=== PATIENT | male | born 1945 | race Caucasian/White ===

== ENCOUNTER 2021-02-23 11:42 | Inpatient (IN) | payer MEDICARE, SELFPAY ==
[2021-02-23 17:57] VITALS: BMI 24.5
[2021-02-25 16:55] VITALS: BP 136/67; TEMP 97.9
== END 2021-02-25 18:07 | disposition home or self-care (01) | DRG 923 ==
LOC: ERS 11:42 → 2SW 15:21 → OBSVTOIN 02-24 17:26
PROVIDERS: ADMIT Internal Medicine; ATTEND Internal Medicine
PROC: B24BZZ4 Ultrasonography of Heart with Aorta, Transesophageal (ICD-10-PCS; principal; 2021-02-25)
DX: T67.5XXA Heat exhaustion, unspecified, initial encounter (principal); I50.22 Chronic systolic (congestive) heart failure; I25.3 Aneurysm of heart; E87.2 Acidosis; I13.0 Hypertensive heart and chronic kidney disease with heart failure and stage 1 through stage 4 chronic kidney disease, or unspecified chronic kidney disease; Z20.822 Contact with and (suspected) exposure to COVID-19; I95.9 Hypotension, unspecified; R94.31 Abnormal electrocardiogram [ECG] [EKG]; E86.0 Dehydration; E53.8 Deficiency of other specified B group vitamins; N18.2 Chronic kidney disease, stage 2 (mild); D53.9 Nutritional anemia, unspecified; K21.9 Gastro-esophageal reflux disease without esophagitis; F41.9 Anxiety disorder, unspecified; H54.40 Blindness, one eye, unspecified eye; F32.9 Major depressive disorder, single episode, unspecified; I08.1 Rheumatic disorders of both mitral and tricuspid valves; R00.1 Bradycardia, unspecified; Z86.711 Personal history of pulmonary embolism; I25.2 Old myocardial infarction; Z79.899 Other long term (current) drug therapy; Z79.82 Long term (current) use of aspirin; Z90.49 Acquired absence of other specified parts of digestive tract; Z87.891 Personal history of nicotine dependence; Z82.49 Family history of ischemic heart disease and other diseases of the circulatory system; Z80.9 Family history of malignant neoplasm, unspecified
CPT/HCPCS: 0439T; 36415; 36416; 70450; 71275; 78452; 80048; 80053; 80061; 81003; 82550; 82607; 82746; 83036; 83605; 83735; 83880; 84484; 85025; 85379; 87040; 87086; 93005; 93017; 93306; 93312; 96365; 96372; 96375; 97139; A9500; G0378; J0153; J0692; J1650; J2250; J2704; J3420; J3475; Q0162; Q9967; U0003; U0005

== ENCOUNTER 2021-07-22 14:24 | Inpatient (IN) | payer MEDICARE ==
[2021-07-22 15:13] LABS: #Eosinphils 0.1 thou/uL (0.0-0.7); #Lymphocytes 2.5 thou/uL (1.20-3.40); #Monocytes 0.5 thou/uL (0.11-0.59); #Neutrophils 4.1 thou/uL (1.40-6.50); %Basophils 0.4 % (0.0-1.0); %Eosinophils 1.3 % (0.0-10.0); %Lymphocytes 34.3 % (21.0-51.0); %Monocytes 7.1 % (0.0-10.0); %Neutrophils 56.9 % (42.0-75.0); Hemoglobin 14.5 g/dL (14.0-18.0); Mean Corpuscular HGB CONC 34.9 g/dL (32.0-36.0); Mean Corpuscular Hemoglobin 32.6 pg (27.0-31.0); Mean Corpuscular Volume 93.4 fL (78.0-98.0); Mean Platelet Volume 7.1 fL (7.4-10.4); Platelet Count 159 thou/uL (130-400); RBC Distribution Width 12.8 % (11.5-14.5); Red Blood Cell (RBC) Count 4.44 mill/uL (4.70-6.10); White Blood Cell (WBC) Count 7.2 thou/uL (4.8-10.8)
[2021-07-22 15:37] LABS: ALT (SGPT) 11 U/L (8-55); AST (SGOT) 13 U/L (5-34); Alkaline Phosphatase 59 U/L (40-110); Anion Gap 13 mmol/L (10-20); BUN (Urea Nitrogen) 17 mg/dL (8.4-25.7); Calc. Creatinine Clearance 0 mL/min (70-130); Calcium 9.7 mg/dL (7.8-10.44); Carbon Dioxide 21 mmol/L (23-31); Chloride 108 mmol/L (98-107); Glucose 98 mg/dL (83-110); Potassium 4.4 mmol/L (3.5-5.1); Sodium 138 mmol/L (136-145)
[2021-07-22 19:08] LABS: Troponin I 0.019 ng/mL (< 0.028)
[2021-07-22] MEDS ORDERED: Ondansetron ODT 4 MG TAB PO PRN (19:11)
[2021-07-22] MEDS ORDERED: Ondansetron PF 4 MG/2 ML Vial IVP PRN (19:17)
[2021-07-22] MEDS ORDERED: Acetaminophen 325 MG TAB PO PRN (19:18)
[2021-07-22] MEDS ORDERED: FLU VACC QS2021-22(65YR UP)/PF 240 MCG/0.7 ML SYRINGE IM ONE (19:45)
[2021-07-22] MEDS ORDERED: Sodium Chloride 0.9% 1,000 ML IV SCH (21:45)
[2021-07-22 22:17] LABS: Troponin I 0.018 ng/mL (< 0.028)
[2021-07-23 00:43] LABS: SARS-CoV-2 PCR by NAA Not Detected (NotDetected)
[2021-07-23 05:49] LABS: ALT (SGPT) 9 U/L (8-55); AST (SGOT) 12 U/L (5-34); Albumin 3.6 g/dL (3.4-4.8); Alkaline Phosphatase 53 U/L (40-110); Anion Gap 12 mmol/L (10-20); BUN (Urea Nitrogen) 15 mg/dL (8.4-25.7); Calc. Creatinine Clearance 74 mL/min (70-130); Calcium 8.7 mg/dL (7.8-10.44); Carbon Dioxide 19 mmol/L (23-31); Chloride 110 mmol/L (98-107); Globulin 3.3 g/dL (2.4-3.5); Glucose 96 mg/dL (83-110); Potassium 3.9 mmol/L (3.5-5.1); Protein, Total 6.9 g/dL (5.8-8.1); Sodium 137 mmol/L (136-145); Troponin I 0.037 ng/mL (< 0.028)
[2021-07-23 05:56] LABS: Band 1 % (5-11); Eosinophils 5 % (0-10); Hemoglobin 13.1 g/dL (14.0-18.0); Lymphocytes 34 % (21-51); MDiff Complete? YES; Mean Corpuscular HGB CONC 34.2 g/dL (32.0-36.0); Mean Corpuscular Hemoglobin 32.1 pg (27.0-31.0); Mean Corpuscular Volume 93.9 fL (78.0-98.0); Monocytes 8 % (0-10); Neutrophil 50 % (42-75); Platelet Count 142 thou/uL (130-400); Platelet Morphology Comment Appears Adequate; RBC Distribution Width 12.7 % (11.5-14.5); RBC Morphology Normal; Red Blood Cell (RBC) Count 4.07 mill/uL (4.70-6.10); White Blood Cell (WBC) Count 4.6 thou/uL (4.8-10.8)
[2021-07-23] MEDS: Famotidine 20 MG TAB PO SCH ×2 (08:45→20:27)
[2021-07-23] MEDS: Sodium Bicarbonate Tab 325 MG TAB PO SCH ×2 (08:46→20:27)
[2021-07-23] MEDS ORDERED: Enoxaparin Sodium 30 MG/0.3 ML SYRINGE SC SCH (09:00)
[2021-07-23] MEDS: Acetylcysteine 20% 200 MG/ML 30 ML VIAL PO SCH ×2 (11:15→20:27)
[2021-07-23] MEDS ORDERED: Aspirin 81 mg Enteric Coated Tablet PO SCH (12:30)
[2021-07-23] MEDS ORDERED: Sodium Chloride 0.9% 1,000 ML IV SCH (12:45)
[2021-07-23] MEDS ORDERED: Nitroglycerin 0.4 MG TAB (25 Tab Bottle) SL PRN (12:58)
[2021-07-23] MEDS: Carvedilol 3.125 MG TAB PO SCH (17:44)
[2021-07-23] MEDS ORDERED: Communication Order-Pharmacy FS SCH (18:00)
[2021-07-23] MEDS: Sodium Chloride 0.9% 1,000 ML IV SCH (20:03)
[2021-07-24] MEDS: Sodium Chloride 0.9% 1,000 ML IV SCH (05:23)
[2021-07-24 05:48] LABS: #Eosinphils 0.2 thou/uL (0.0-0.7); #Lymphocytes 1.9 thou/uL (1.20-3.40); #Monocytes 0.4 thou/uL (0.11-0.59); #Neutrophils 2.1 thou/uL (1.40-6.50); %Basophils 0.7 % (0.0-1.0); %Eosinophils 3.9 % (0.0-10.0); %Lymphocytes 41.4 % (21.0-51.0); %Monocytes 9.1 % (0.0-10.0); %Neutrophils 44.9 % (42.0-75.0); Hemoglobin 13.1 g/dL (14.0-18.0); Mean Corpuscular HGB CONC 35.2 g/dL (32.0-36.0); Mean Corpuscular Hemoglobin 33.1 pg (27.0-31.0); Mean Corpuscular Volume 93.9 fL (78.0-98.0); Mean Platelet Volume 7.1 fL (7.4-10.4); Platelet Count 131 thou/uL (130-400); RBC Distribution Width 12.7 % (11.5-14.5); Red Blood Cell (RBC) Count 3.95 mill/uL (4.70-6.10); White Blood Cell (WBC) Count 4.6 thou/uL (4.8-10.8)
[2021-07-24] MEDS: Acetylcysteine 20% 200 MG/ML 30 ML VIAL PO SCH ×2 (05:48→20:23)
[2021-07-24] MEDS: Carvedilol 3.125 MG TAB PO SCH ×2 (05:48→16:15)
[2021-07-24] MEDS: Aspirin 81 mg Enteric Coated Tablet PO SCH (05:48)
[2021-07-24] MEDS: Sodium Bicarbonate Tab 325 MG TAB PO SCH ×2 (05:48→20:23)
[2021-07-24] MEDS: Famotidine 20 MG TAB PO SCH ×2 (05:48→20:23)
[2021-07-24 06:08] LABS: Anion Gap 11 mmol/L (10-20); BUN (Urea Nitrogen) 14 mg/dL (8.4-25.7); Calc. Creatinine Clearance 80 mL/min (70-130); Calcium 8.5 mg/dL (7.8-10.44); Carbon Dioxide 19 mmol/L (23-31); Chloride 112 mmol/L (98-107); Glucose 106 mg/dL (83-110); Potassium 3.9 mmol/L (3.5-5.1); Sodium 138 mmol/L (136-145)
[2021-07-24 07:41] LABS: Hemoglobin A1c 5.8 % (4.0-6.0)
[2021-07-24] MEDS ORDERED: Aspirin 325 mg Enteric Coated Tablet PO SCH (09:00)
[2021-07-24] MEDS ORDERED: Heparin 10,000 UNITS/ 10 ML VIAL ONE (10:26)
[2021-07-24] MEDS ORDERED: Verapamil 5 MG/2 ML VIAL ONE (10:26)
[2021-07-24] MEDS ORDERED: Nitroglycerin 100MG/250ML BOT 0 ML ONE (10:27)
[2021-07-24] MEDS ORDERED: Lidocaine 1% (PF) 30 ML VIAL ONE (10:27)
[2021-07-24] MEDS ORDERED: Iopamidol 370 76% 100 ML VIAL ONE (10:52)
[2021-07-24] MEDS ORDERED: Midazolam HCl 2 mg/2 ml Vial ONE (11:12)
[2021-07-24] MEDS ORDERED: Fentanyl 100 MCG/2 ML VIAL ONE (11:13)
[2021-07-24] MEDS ORDERED: Acetaminophen/Codeine 30-300mg Tablet PO PRN ×2 (13:12)
[2021-07-24] MEDS ORDERED: Sodium Chloride 0.9% 200 ML IV PRN (13:12)
[2021-07-24] MEDS ORDERED: Nitroglycerin 0.4 MG TAB (25 Tab Bottle) SL PRN (13:12)
[2021-07-24] MEDS ORDERED: Sodium Chloride 0.9% 1,000 ML IV SCH (13:15)
[2021-07-24] MEDS: Lisinopril 5 MG TAB PO SCH (20:24)
[2021-07-24] MEDS: Atorvastatin Calcium 20 MG TAB PO SCH (20:24)
[2021-07-25] MEDS: Carvedilol 3.125 MG TAB PO SCH ×2 (08:26→17:35)
[2021-07-25] MEDS: Aspirin 81 mg Enteric Coated Tablet PO SCH (08:26)
[2021-07-25] MEDS: Lisinopril 5 MG TAB PO SCH ×2 (08:27→20:20)
[2021-07-25] MEDS: Sodium Bicarbonate Tab 325 MG TAB PO SCH ×2 (08:27→20:20)
[2021-07-25] MEDS: Famotidine 20 MG TAB PO SCH (08:27)
[2021-07-25 09:00] LABS: Albumin 3.5 g/dL (3.4-4.8); Anion Gap 12 mmol/L (10-20); BUN (Urea Nitrogen) 12 mg/dL (8.4-25.7); BUN/Creatinine Ratio 11.65; Calc. Creatinine Clearance 78 mL/min (70-130); Calcium 8.9 mg/dL (7.8-10.44); Carbon Dioxide 22 mmol/L (23-31); Chloride 109 mmol/L (98-107); Glucose 114 mg/dL (83-110); Phosphorus 2.7 mg/dL (2.3-4.7); Potassium 3.9 mmol/L (3.5-5.1); Sodium 139 mmol/L (136-145)
[2021-07-25] MEDS: Atorvastatin Calcium 20 MG TAB PO SCH (20:20)
[2021-07-25] MEDS: Cyanocobalamin (Vitamin B-12) 1,000 MCG TAB PO SCH (20:20)
[2021-07-25] MEDS: Folic Acid 1 MG TAB PO SCH (20:20)
[2021-07-26 06:00] LABS: Albumin 3.4 g/dL (3.4-4.8); Anion Gap 11 mmol/L (10-20); BUN (Urea Nitrogen) 16 mg/dL (8.4-25.7); BUN/Creatinine Ratio 13.33; Calc. Creatinine Clearance 67 mL/min (70-130); Carbon Dioxide 23 mmol/L (23-31); Chloride 110 mmol/L (98-107); Glucose 121 mg/dL (83-110); Phosphorus 2.9 mg/dL (2.3-4.7); Sodium 140 mmol/L (136-145)
[2021-07-26] MEDS: Sodium Bicarbonate Tab 325 MG TAB PO SCH ×2 (08:39→21:08)
[2021-07-26] MEDS: Aspirin 81 mg Enteric Coated Tablet PO SCH (08:39)
[2021-07-26] MEDS: Lisinopril 5 MG TAB PO SCH ×2 (08:39→21:08)
[2021-07-26] MEDS: Carvedilol 3.125 MG TAB PO SCH ×2 (08:39→16:39)
[2021-07-26] MEDS ORDERED: Acetaminophen 325 MG TAB PO PRN (12:32)
[2021-07-26] MEDS: Folic Acid 1 MG TAB PO SCH (21:08)
[2021-07-26] MEDS: Cyanocobalamin (Vitamin B-12) 1,000 MCG TAB PO SCH (21:08)
[2021-07-26] MEDS: Atorvastatin Calcium 20 MG TAB PO SCH (21:08)
[2021-07-27] MEDS: Sodium Bicarbonate Tab 325 MG TAB PO SCH ×2 (08:22→21:07)
[2021-07-27] MEDS: Aspirin 81 mg Enteric Coated Tablet PO SCH (08:22)
[2021-07-27] MEDS: Lisinopril 5 MG TAB PO SCH ×2 (08:22→21:07)
[2021-07-27] MEDS: Carvedilol 3.125 MG TAB PO SCH ×2 (08:22→17:18)
[2021-07-27 14:49] LABS: Anion Gap 11 mmol/L (10-20); BUN (Urea Nitrogen) 12 mg/dL (8.4-25.7); Calc. Creatinine Clearance 79 mL/min (70-130); Calcium 8.6 mg/dL (7.8-10.44); Carbon Dioxide 23 mmol/L (23-31); Chloride 107 mmol/L (98-107); Glucose 127 mg/dL (83-110); Potassium 3.8 mmol/L (3.5-5.1); Sodium 137 mmol/L (136-145)
[2021-07-27] MEDS: Folic Acid 1 MG TAB PO SCH (21:07)
[2021-07-27] MEDS: Cyanocobalamin (Vitamin B-12) 1,000 MCG TAB PO SCH (21:07)
[2021-07-27] MEDS: Atorvastatin Calcium 20 MG TAB PO SCH (21:07)
[2021-07-28] MEDS ORDERED: Communication Order-Pharmacy FS SCH (00:01)
[2021-07-28] MEDS ORDERED: CEFAZOLIN 2 GM in Premix Bag 1 BAG IVPB SCH (02:30)
[2021-07-28] MEDS: Lisinopril 5 MG TAB PO SCH (05:46)
[2021-07-28] MEDS ORDERED: ceFAZolin 2 GM/DEX 5% 100 ML BAG ONE (05:47)
[2021-07-28] MEDS ORDERED: Albumin 5% 500 ML ONE (06:21)
[2021-07-28] MEDS ORDERED: Fentanyl 250 MCG/5 ML VIAL ONE (06:50)
[2021-07-28] MEDS ORDERED: Midazolam HCl 5 mg/5 ml Vial ONE (06:50)
[2021-07-28] MEDS ORDERED: Dexmedetomidine 200 MCG/2 ML VIAL ONE (06:50)
[2021-07-28] MEDS ORDERED: Heparin 10,000 UNITS/1 ML VIAL 30,000 UNITS in Sodium Chloride 0.9% 1,000 ML FS SCH (07:00)
[2021-07-28] MEDS ORDERED: Sodium Chloride 0.9% 60 ML ONE (07:02)
[2021-07-28] MEDS ORDERED: Milrinone 10 MG/10 ML VIAL ONE (07:34)
[2021-07-28] MEDS ORDERED: Vecuronium 10 MG VIAL ONE (07:46)
[2021-07-28] MEDS ORDERED: Ondansetron PF 4 MG/2 ML Vial ONE (07:46)
[2021-07-28] MEDS ORDERED: Heparin 30,000 units/30 ml VIAL ONE (07:46)
[2021-07-28] MEDS ORDERED: Potassium Chloride 60 MEQ/30 ML VIAL ONE (07:46)
[2021-07-28] MEDS ORDERED: Aminocaproic Acid 5 GM/20 ML VIAL ONE (07:46)
[2021-07-28] MEDS ORDERED: Nitroglycerin 50 MG/250 ML BOT ONE (07:46)
[2021-07-28] MEDS ORDERED: Thrombin 5000 UNITS/5 ML VIAL ONE (07:46)
[2021-07-28] MEDS ORDERED: Papaverine 60 MG/2 ML VIAL ONE (07:46)
[2021-07-28] MEDS ORDERED: Cardioplegic Soln 1,000 ML BAG ONE (07:46)
[2021-07-28] MEDS ORDERED: Calcium Chloride 1 GM/10 ML Abboject SYRINGE ONE (07:46)
[2021-07-28] MEDS ORDERED: Sodium Bicarb 50 MEQ/50 ML Abboject 8.4% SYRINGE ONE (07:46)
[2021-07-28] MEDS ORDERED: Glycopyrrolate 0.2 MG/ML 5 ML SYRINGE ONE (07:46)
[2021-07-28] MEDS ORDERED: Protamine Sulfate 250 MG/25 ML VIAL ONE (07:46)
[2021-07-28] MEDS ORDERED: Heparin 5,000 UNITS/ML VIAL ONE (07:46)
[2021-07-28] MEDS ORDERED: Lidocaine 2% PF 100 mg/5 ml Syringe ONE (07:46)
[2021-07-28] MEDS ORDERED: PROPOFOL 200 MG/20 ML VIAL ONE (07:46)
[2021-07-28] MEDS ORDERED: Magnesium Sulfate 1 GM/2 ML VIAL ONE (07:46)
[2021-07-28] MEDS ORDERED: Dexamethasone 20 MG/5 ML VIAL ONE (07:46)
[2021-07-28] MEDS ORDERED: Lidocaine 1% PF 5 ML VIAL ONE (07:46)
[2021-07-28] MEDS ORDERED: Insulin Regular 300 UNITS/3 ML VIAL ONE (08:21)
[2021-07-28] MEDS ORDERED: Mag-Al 1200 mg/1200 mg/30 ML UDCUP PO PRN (11:10)
[2021-07-28] MEDS ORDERED: Fentanyl 100 MCG/2 ML VIAL SLOW IVP PRN ×2 (11:10)
[2021-07-28] MEDS ORDERED: Hetastarch 6% 500 ML 500 ML IVPB PRN (11:10)
[2021-07-28] MEDS ORDERED: Guaifenesin DM 100-10/5 ML UDCUP PO PRN (11:10)
[2021-07-28] MEDS ORDERED: Post-Op Insulin Drip Protocol IVPB ONE (11:10)
[2021-07-28] MEDS ORDERED: Potassium Chloride 20 MEQ/100 ML PREMIX BAG IVPB PRN (11:10)
[2021-07-28] MEDS ORDERED: Bisacodyl 10 MG SUPP PR PRN (11:10)
[2021-07-28] MEDS ORDERED: Acetaminophen 325 MG TAB PO PRN (11:10)
[2021-07-28] MEDS ORDERED: Bisacodyl 5 MG TAB PO PRN (11:10)
[2021-07-28] MEDS ORDERED: Norepinephrine 8 MG/0.9% NS 250 ML IVPB PRN (11:10)
[2021-07-28] MEDS ORDERED: niCARdipine 25 MG in Sodium Chloride 0.9% 250 ML 250 ML IVPB PRN (11:10)
[2021-07-28] MEDS ORDERED: Morphine 2 MG/ML VIAL SLOW IVP PRN (11:10)
[2021-07-28] MEDS ORDERED: Nitroglycerin 50 MG/250 ML BOT 250 ML IVPB PRN (11:10)
[2021-07-28] MEDS ORDERED: DOPamine 400 MG/D5W 250 ML 250 ML IVPB PRN (11:10)
[2021-07-28] MEDS ORDERED: hydrALAZINE 20 MG/ML VIAL SLOW IVP PRN (11:10)
[2021-07-28] MEDS: Carvedilol 3.125 MG TAB PO SCH (11:28)
[2021-07-28] MEDS ORDERED: Insulin Regular 300 UNITS/3 ML VIAL SC PRN (11:30)
[2021-07-28] MEDS ORDERED: HUMULIN R 100 UNITS in Sodium Chloride 0.9% 100 ML IVPB SCH (11:30)
[2021-07-28] MEDS ORDERED: Dextrose 5% in Water 1,000 ML IV PRN (11:30)
[2021-07-28] MEDS ORDERED: Dextrose 50% Abboject 50 ML SYRINGE SLOW IVP PRN (11:30)
[2021-07-28] MEDS ORDERED: Lantus 1000 UNITS/10 ML VIAL SC PRN (11:30)
[2021-07-28 12:05] LABS: Actual Bicarbonate (HCO3a) 21.3 mEq/L (22-28); Base Excess (BEa) -3.2 mEq/L (-2.0 to +3.0); CO2 Tension 36.2 mmHg (35.0-45.0); Calcium, Ionized (arterial) 1.04 mmol/L (1.12-1.30); Carboxyhemoglobin (COHb) 0.3 gm% (0.0-3.0); Hemoglobin (Hb) 10.6 g/dL (14.0-18.0); O2 Tension (PaO2), arterial 164.7 mmHg (> 70.0); Potassium - ABG Lab 4.14 mmol/L (3.70-5.30); pH, Arterial 7.39 (7.35-7.45)
[2021-07-28 12:07] LABS: Puncture Site Arterial Line
[2021-07-28 12:16] LABS: #Eosinphils 0.1 thou/uL (0.0-0.7); #Lymphocytes 0.8 thou/uL (1.20-3.40); #Monocytes 0.3 thou/uL (0.11-0.59); %Eosinophils 1.2 % (0.0-10.0); %Lymphocytes 12.3 % (21.0-51.0); %Monocytes 5.5 % (0.0-10.0); %Neutrophils 80.9 % (42.0-75.0); Hemoglobin 10.3 g/dL (14.0-18.0); Mean Corpuscular HGB CONC 33.8 g/dL (32.0-36.0); Mean Corpuscular Hemoglobin 31.7 pg (27.0-31.0); Mean Corpuscular Volume 93.8 fL (78.0-98.0); Mean Platelet Volume 6.6 fL (7.4-10.4); Platelet Count 91 thou/uL (130-400); RBC Distribution Width 12.6 % (11.5-14.5); Red Blood Cell (RBC) Count 3.26 mill/uL (4.70-6.10); White Blood Cell (WBC) Count 6.2 thou/uL (4.8-10.8)
[2021-07-28 12:22] LABS: INR-International Normal Ratio 1.5; Prothrombin Time 18.4 sec (12.0-14.7)
[2021-07-28 12:23] LABS: PTT 39.9 sec (22.9-36.1)
[2021-07-28 12:41] LABS: MDiff Complete? YES; Platelet Morphology Comment Appears Decreased; Polychromasia SLIGHT = 2-3 cells (100X) (0-2/hpf)
[2021-07-28 12:44] LABS: Anion Gap 10 mmol/L (10-20); BUN (Urea Nitrogen) 13 mg/dL (8.4-25.7); Calc. Creatinine Clearance 97 mL/min (70-130); Carbon Dioxide 22 mmol/L (23-31); Chloride 112 mmol/L (98-107); Glucose 173 mg/dL (83-110); Potassium 4.3 mmol/L (3.5-5.1); Sodium 140 mmol/L (136-145)
[2021-07-28 14:01] LABS: Actual Bicarbonate (HCO3a) 18.7 mEq/L (22-28); Base Excess (BEa) -2.3 mEq/L (-2.0 to +3.0); Calcium, Ionized (arterial) 1.01 mmol/L (1.12-1.30); Carboxyhemoglobin (COHb) 0.3 gm% (0.0-3.0); Hemoglobin (Hb) 11.4 g/dL (14.0-18.0); O2 Tension (PaO2), arterial 101.9 mmHg (> 70.0); Potassium - ABG Lab 3.97 mmol/L (3.70-5.30); pH, Arterial 7.54 (7.35-7.45)
[2021-07-28 14:14] LABS: CO2 Tension 22.4 mmHg (35.0-45.0); Puncture Site Arterial Line
[2021-07-28] MEDS: ceFAZolin Sodium/D5W 2 GM in Premix Bag 1 BAG IVPB SCH ×2 (14:46→21:12)
[2021-07-28] MEDS: Lactated Ringer's 1,000 ML IV SCH (14:47)
[2021-07-28] MEDS: HYDROcodone/Acetaminophen 5/325 mg Tablet PO PRN ×2 (16:03→20:41)
[2021-07-28 16:49] LABS: Hemoglobin 11.2 g/dL (14.0-18.0)
[2021-07-28 17:22] LABS: Potassium 3.9 mmol/L (3.5-5.1)
[2021-07-28] MEDS: Ondansetron PF 4 MG/2 ML Vial IVP PRN (17:51)
[2021-07-28] MEDS: Atorvastatin Calcium 10 MG TAB PO SCH (20:10)
[2021-07-28] MEDS ORDERED: Famotidine/PF 20 mg/2ml Vial SLOW IVP SCH (21:00)
[2021-07-29] MEDS: Lactated Ringer's 1,000 ML IV SCH ×2 (00:08→16:07)
[2021-07-29 04:48] LABS: Anion Gap 11 mmol/L (10-20); BUN (Urea Nitrogen) 12 mg/dL (8.4-25.7); Calc. Creatinine Clearance 93 mL/min (70-130); Calcium 7.5 mg/dL (7.8-10.44); Carbon Dioxide 20 mmol/L (23-31); Chloride 111 mmol/L (98-107); Glucose 107 mg/dL (83-110); Sodium 138 mmol/L (136-145)
[2021-07-29 04:52] LABS: #Lymphocytes 1.1 thou/uL (1.20-3.40); #Monocytes 0.7 thou/uL (0.11-0.59); #Neutrophils 5.4 thou/uL (1.40-6.50); %Basophils 0.1 % (0.0-1.0); %Eosinophils 0.1 % (0.0-10.0); %Lymphocytes 15.2 % (21.0-51.0); %Monocytes 9.2 % (0.0-10.0); %Neutrophils 75.4 % (42.0-75.0); Hemoglobin 9.1 g/dL (14.0-18.0); Mean Corpuscular HGB CONC 33.7 g/dL (32.0-36.0); Mean Corpuscular Volume 94.8 fL (78.0-98.0); Mean Platelet Volume 7.6 fL (7.4-10.4); Platelet Count 95 thou/uL (130-400); RBC Distribution Width 12.7 % (11.5-14.5); Red Blood Cell (RBC) Count 2.83 mill/uL (4.70-6.10); White Blood Cell (WBC) Count 7.1 thou/uL (4.8-10.8)
[2021-07-29] MEDS ORDERED: CEFAZOLIN 2 GM in Premix Bag 1 BAG IVPB SCH (06:00)
[2021-07-29] MEDS: Ondansetron PF 4 MG/2 ML Vial IVP PRN (06:29)
[2021-07-29] MEDS ORDERED: Nitroglycerin 0.4 MG TAB (25 Tab Bottle) SL PRN (08:21)
[2021-07-29] MEDS: Aspirin 325 MG TAB PO SCH (08:29)
[2021-07-29] MEDS: Famotidine 20 MG TAB PO SCH ×2 (08:29→20:45)
[2021-07-29] MEDS: Folic Acid 1 MG TAB PO SCH (08:29)
[2021-07-29] MEDS: Cyanocobalamin (Vitamin B-12) 1,000 MCG TAB PO SCH (08:30)
[2021-07-29] MEDS: Carvedilol 3.125 MG TAB PO SCH (20:44)
[2021-07-29] MEDS: Atorvastatin Calcium 10 MG TAB PO SCH (20:45)
[2021-07-29] MEDS: Atorvastatin Calcium 20 MG TAB PO SCH (20:45)
[2021-07-30] MEDS: HYDROcodone/Acetaminophen 5/325 mg Tablet PO PRN ×4 (00:02→16:07)
[2021-07-30 05:25] LABS: #Lymphocytes 1.8 thou/uL (1.20-3.40); #Monocytes 0.8 thou/uL (0.11-0.59); #Neutrophils 5.4 thou/uL (1.40-6.50); %Basophils 0.4 % (0.0-1.0); %Eosinophils 0.4 % (0.0-10.0); %Lymphocytes 22.2 % (21.0-51.0); %Neutrophils 67.1 % (42.0-75.0); Hemoglobin 9.1 g/dL (14.0-18.0); Mean Corpuscular HGB CONC 34.8 g/dL (32.0-36.0); Mean Corpuscular Hemoglobin 32.7 pg (27.0-31.0); Mean Corpuscular Volume 94.1 fL (78.0-98.0); Mean Platelet Volume 7.4 fL (7.4-10.4); Platelet Count 102 thou/uL (130-400); RBC Distribution Width 12.4 % (11.5-14.5); Red Blood Cell (RBC) Count 2.78 mill/uL (4.70-6.10)
[2021-07-30] MEDS: Lactated Ringer's 1,000 ML IV SCH (05:32)
[2021-07-30 05:43] LABS: Anion Gap 5 mmol/L (10-20); BUN (Urea Nitrogen) 11 mg/dL (8.4-25.7); Calc. Creatinine Clearance 105 mL/min (70-130); Calcium 7.7 mg/dL (7.8-10.44); Carbon Dioxide 25 mmol/L (23-31); Chloride 109 mmol/L (98-107); Glucose 152 mg/dL (83-110); Potassium 3.9 mmol/L (3.5-5.1); Sodium 135 mmol/L (136-145)
[2021-07-30] MEDS: Cyanocobalamin (Vitamin B-12) 1,000 MCG TAB PO SCH (09:34)
[2021-07-30] MEDS: Furosemide 40 MG TAB PO SCH (09:34)
[2021-07-30] MEDS: Famotidine 20 MG TAB PO SCH ×2 (09:34→21:18)
[2021-07-30] MEDS: Folic Acid 1 MG TAB PO SCH (09:35)
[2021-07-30] MEDS: Carvedilol 3.125 MG TAB PO SCH ×2 (09:35→21:18)
[2021-07-30] MEDS: Spironolactone 25 MG TAB PO SCH (09:35)
[2021-07-30] MEDS: Polyethylene Glycol 3350 17 GM Packet PO SCH (09:35)
[2021-07-30] MEDS: Losartan 25 MG TAB PO SCH (09:35)
[2021-07-30] MEDS: Aspirin 325 MG TAB PO SCH (09:35)
[2021-07-30] MEDS ORDERED: Furosemide 40 MG/4 ML VIAL IVP SCH (10:15)
[2021-07-30] MEDS ORDERED: HumaLOG 300 UNITS/3 ML VIAL SC PRN (13:32)
[2021-07-30] MEDS ORDERED: Dextrose 50% Abboject 50 ML SYRINGE SLOW IVP PRN (13:32)
[2021-07-30] MEDS ORDERED: Dextrose 5% in Water 1,000 ML IV PRN (13:32)
[2021-07-30 15:27] LABS: SARS-CoV-2 PCR by NAA Not Detected (NotDetected)
[2021-07-30] MEDS: Atorvastatin Calcium 20 MG TAB PO SCH (21:18)
[2021-07-30] MEDS: Enoxaparin Sodium 40 MG/0.4 ML SYRINGE SC SCH (21:18)
[2021-07-31] MEDS: Cyanocobalamin (Vitamin B-12) 1,000 MCG TAB PO SCH (09:00)
[2021-07-31] MEDS: Aspirin 325 MG TAB PO SCH (09:00)
[2021-07-31] MEDS: Furosemide 40 MG TAB PO SCH (09:00)
[2021-07-31] MEDS: Losartan 25 MG TAB PO SCH (09:00)
[2021-07-31] MEDS: Famotidine 20 MG TAB PO SCH ×2 (09:00→21:03)
[2021-07-31] MEDS: Polyethylene Glycol 3350 17 GM Packet PO SCH (09:00)
[2021-07-31] MEDS: Spironolactone 25 MG TAB PO SCH (09:01)
[2021-07-31] MEDS: Carvedilol 3.125 MG TAB PO SCH ×2 (09:01→21:03)
[2021-07-31] MEDS: Folic Acid 1 MG TAB PO SCH (10:09)
[2021-07-31] MEDS: HumaLOG 300 UNITS/3 ML VIAL SC PRN (13:20)
[2021-07-31] MEDS: HYDROcodone/Acetaminophen 5/325 mg Tablet PO PRN (13:44)
[2021-07-31] MEDS: Atorvastatin Calcium 20 MG TAB PO SCH (21:03)
[2021-07-31] MEDS: Enoxaparin Sodium 40 MG/0.4 ML SYRINGE SC SCH (21:03)
[2021-08-01 04:31] LABS: #Eosinphils 0.1 thou/uL (0.0-0.7); #Monocytes 0.8 thou/uL (0.11-0.59); #Neutrophils 4.3 thou/uL (1.40-6.50); %Basophils 0.6 % (0.0-1.0); %Eosinophils 1.6 % (0.0-10.0); %Lymphocytes 27.6 % (21.0-51.0); %Monocytes 10.6 % (0.0-10.0); %Neutrophils 59.5 % (42.0-75.0); Hemoglobin 9.4 g/dL (14.0-18.0); Mean Corpuscular HGB CONC 34.8 g/dL (32.0-36.0); Mean Corpuscular Hemoglobin 33.1 pg (27.0-31.0); Mean Corpuscular Volume 94.9 fL (78.0-98.0); Mean Platelet Volume 7.3 fL (7.4-10.4); Platelet Count 157 thou/uL (130-400); RBC Distribution Width 12.6 % (11.5-14.5); Red Blood Cell (RBC) Count 2.84 mill/uL (4.70-6.10); White Blood Cell (WBC) Count 7.2 thou/uL (4.8-10.8)
[2021-08-01 04:44] LABS: Anion Gap 12 mmol/L (10-20); BUN (Urea Nitrogen) 10 mg/dL (8.4-25.7); Calc. Creatinine Clearance 99 mL/min (70-130); Calcium 7.7 mg/dL (7.8-10.44); Carbon Dioxide 20 mmol/L (23-31); Chloride 106 mmol/L (98-107); Glucose 119 mg/dL (83-110); Potassium 3.5 mmol/L (3.5-5.1); Sodium 134 mmol/L (136-145)
[2021-08-01 04:47] LABS: Magnesium 1.9 mg/dL (1.6-2.6)
[2021-08-01] MEDS: Cyanocobalamin (Vitamin B-12) 1,000 MCG TAB PO SCH (08:45)
[2021-08-01] MEDS: Aspirin 325 MG TAB PO SCH (08:45)
[2021-08-01] MEDS ORDERED: Potassium Chloride 20 MEQ TAB PO SCH (08:45)
[2021-08-01] MEDS: Famotidine 20 MG TAB PO SCH ×2 (08:45→21:36)
[2021-08-01] MEDS: Carvedilol 3.125 MG TAB PO SCH ×2 (08:45→21:36)
[2021-08-01] MEDS: Spironolactone 25 MG TAB PO SCH ×2 (08:45→09:04)
[2021-08-01] MEDS: Folic Acid 1 MG TAB PO SCH (08:45)
[2021-08-01] MEDS: Polyethylene Glycol 3350 17 GM Packet PO SCH (08:46)
[2021-08-01] MEDS: Losartan 25 MG TAB PO SCH (08:46)
[2021-08-01] MEDS: Furosemide 40 MG TAB PO SCH (09:15)
[2021-08-01] MEDS: HumaLOG 300 UNITS/3 ML VIAL SC PRN (11:53)
[2021-08-01] MEDS: Enoxaparin Sodium 40 MG/0.4 ML SYRINGE SC SCH (21:36)
[2021-08-01] MEDS: Atorvastatin Calcium 20 MG TAB PO SCH (21:36)
[2021-08-02 04:37] LABS: Anion Gap 11 mmol/L (10-20); BUN (Urea Nitrogen) 13 mg/dL (8.4-25.7); Calc. Creatinine Clearance 88 mL/min (70-130); Calcium 7.9 mg/dL (7.8-10.44); Carbon Dioxide 24 mmol/L (23-31); Chloride 104 mmol/L (98-107); Glucose 125 mg/dL (83-110); Potassium 3.7 mmol/L (3.5-5.1); Sodium 135 mmol/L (136-145)
[2021-08-02] MEDS: Famotidine 20 MG TAB PO SCH ×2 (08:58→20:59)
[2021-08-02] MEDS: Furosemide 40 MG TAB PO SCH (08:58)
[2021-08-02] MEDS: Losartan 25 MG TAB PO SCH (08:58)
[2021-08-02] MEDS: Aspirin 325 MG TAB PO SCH (08:58)
[2021-08-02] MEDS: Cyanocobalamin (Vitamin B-12) 1,000 MCG TAB PO SCH (08:58)
[2021-08-02] MEDS: Polyethylene Glycol 3350 17 GM Packet PO SCH (08:58)
[2021-08-02] MEDS: Folic Acid 1 MG TAB PO SCH (08:58)
[2021-08-02] MEDS: Carvedilol 3.125 MG TAB PO SCH ×2 (08:59→20:58)
[2021-08-02] MEDS: Spironolactone 25 MG TAB PO SCH (08:59)
[2021-08-02] MEDS ORDERED: Furosemide 40 MG TAB PO SCH (09:00)
[2021-08-02] MEDS: Atorvastatin Calcium 20 MG TAB PO SCH (20:58)
[2021-08-02] MEDS: Enoxaparin Sodium 40 MG/0.4 ML SYRINGE SC SCH (20:58)
[2021-08-03] MEDS: Spironolactone 25 MG TAB PO SCH (09:55)
[2021-08-03] MEDS: Carvedilol 3.125 MG TAB PO SCH ×2 (09:55→20:15)
[2021-08-03] MEDS: Polyethylene Glycol 3350 17 GM Packet PO SCH (09:55)
[2021-08-03] MEDS: Famotidine 20 MG TAB PO SCH ×2 (09:55→20:15)
[2021-08-03] MEDS: Aspirin 325 MG TAB PO SCH (09:55)
[2021-08-03] MEDS: Atorvastatin Calcium 20 MG TAB PO SCH (20:15)
[2021-08-03] MEDS: Enoxaparin Sodium 40 MG/0.4 ML SYRINGE SC SCH (20:15)
[2021-08-04] MEDS: Famotidine 20 MG TAB PO SCH ×2 (09:31→21:57)
[2021-08-04] MEDS: Aspirin 325 MG TAB PO SCH (09:31)
[2021-08-04] MEDS: Carvedilol 3.125 MG TAB PO SCH ×2 (09:31→21:56)
[2021-08-04] MEDS: Polyethylene Glycol 3350 17 GM Packet PO SCH (09:31)
[2021-08-04] MEDS: Spironolactone 25 MG TAB PO SCH (09:31)
[2021-08-04 10:00] VITALS: BMI 21.8
[2021-08-04] MEDS: Atorvastatin Calcium 20 MG TAB PO SCH (21:56)
[2021-08-04] MEDS: Enoxaparin Sodium 40 MG/0.4 ML SYRINGE SC SCH (21:57)
[2021-08-05 08:38] LABS: Actual Bicarbonate (HCO3a) 20.6 mEq/L (22-28); Analyzer IN Cardio OR; Base Excess (BEa) -4.6 mEq/L (-2.0 to +3.0); CO2 Tension 38.4 mmHg (35.0-45.0); Calcium, Ionized (arterial) 1.03 mmol/L (1.12-1.30); Carboxyhemoglobin (COHb) 0.6 gm% (0.0-3.0); Hemoglobin (Hb) 9.9 g/dL (14.0-18.0); O2 Tension (PaO2), arterial 390.3 mmHg (> 70.0); Potassium - ABG Lab 4.07 mmol/L (3.70-5.30); Puncture Site Arterial Line; pH, Arterial 7.35 (7.35-7.45)
[2021-08-05 08:40] LABS: Actual Bicarbonate (HCO3a) 19.3 mEq/L (22-28); Analyzer IN Cardio OR; Base Excess (BEa) -5.5 mEq/L (-2.0 to +3.0); CO2 Tension 35.4 mmHg (35.0-45.0); Hemoglobin (Hb) 11.7 g/dL (14.0-18.0); O2 Tension (PaO2), arterial 402.6 mmHg (> 70.0); Potassium - ABG Lab 4.18 mmol/L (3.70-5.30); pH, Arterial 7.36 (7.35-7.45)
[2021-08-05 08:40] LABS: Actual Bicarbonate (HCO3a) 22.9 mEq/L (22-28); Analyzer IN Cardio OR; Base Excess (BEa) -1.2 mEq/L (-2.0 to +3.0); CO2 Tension 35.3 mmHg (35.0-45.0); Calcium, Ionized (arterial) 0.94 mmol/L (1.12-1.30); Carboxyhemoglobin (COHb) 0.5 gm% (0.0-3.0); Hemoglobin (Hb) 8.1 g/dL (14.0-18.0); O2 Tension (PaO2), arterial 440.1 mmHg (> 70.0); Potassium - ABG Lab 4.52 mmol/L (3.70-5.30); pH, Arterial 7.43 (7.35-7.45)
[2021-08-05 08:40] LABS: Actual Bicarbonate (HCO3a) 19.6 mEq/L (22-28); Analyzer IN Cardio OR; Base Excess (BEa) -4.2 mEq/L (-2.0 to +3.0); CO2 Tension 32.1 mmHg (35.0-45.0); Calcium, Ionized (arterial) 1.12 mmol/L (1.12-1.30); Carboxyhemoglobin (COHb) 0.3 gm% (0.0-3.0); Hemoglobin (Hb) 12.5 g/dL (14.0-18.0); O2 Tension (PaO2), arterial 358.2 mmHg (> 70.0); Potassium - ABG Lab 3.67 mmol/L (3.70-5.30)
[2021-08-05 08:41] LABS: Actual Bicarbonate (HCO3v) 20 mEq/L (22-28); Analyzer IN Cardio OR; Base Excess -5.3 mEq/L (-2.0 to +3.0); Chloride (VBG) 111 mmol/L (98-106); Potassium (VBG) 4.09 mmol/L (3.70-5.30); Sodium 135.7 mmol/L (133-146); pH (venous) 7.35 (7.32-7.43)
[2021-08-05 08:41] LABS: Actual Bicarbonate (HCO3v) 23 mEq/L (22-28); Analyzer IN Cardio OR; Base Excess -2.5 mEq/L (-2.0 to +3.0); Calcium, Ionized (venous) 0.97 mmol/L (1.16-1.32); Chloride (VBG) 112 mmol/L (98-106); Hemoglobin (Hb) 8.2 g/dL (12.6-17.4); Sodium 136.5 mmol/L (133-146); pH (venous) 7.34 (7.32-7.43)
[2021-08-05 08:42] LABS: Analyzer IN Cardio OR; Base Excess (BEa) -0.7 mEq/L (-2.0 to +3.0); Calcium, Ionized (arterial) 1.02 mmol/L (1.12-1.30); Carboxyhemoglobin (COHb) 0.3 gm% (0.0-3.0); Hemoglobin (Hb) 8.8 g/dL (14.0-18.0); O2 Tension (PaO2), arterial 340.7 mmHg (> 70.0); Potassium - ABG Lab 4.31 mmol/L (3.70-5.30); pH, Arterial 7.45 (7.35-7.45)
[2021-08-05 08:42] LABS: Puncture Site Arterial Line
[2021-08-05 08:42] LABS: Actual Bicarbonate (HCO3a) 21.1 mEq/L (22-28); Analyzer IN Cardio OR; Base Excess (BEa) -2.1 mEq/L (-2.0 to +3.0); CO2 Tension 29.6 mmHg (35.0-45.0); Calcium, Ionized (arterial) 0.91 mmol/L (1.12-1.30); Carboxyhemoglobin (COHb) 0.4 gm% (0.0-3.0); Hemoglobin (Hb) 7.5 g/dL (14.0-18.0); O2 Tension (PaO2), arterial 313.5 mmHg (> 70.0); Potassium - ABG Lab 4.65 mmol/L (3.70-5.30); pH, Arterial 7.47 (7.35-7.45)
[2021-08-05 08:43] LABS: Puncture Site Arterial Line
[2021-08-05 08:43] LABS: Puncture Site Arterial Line
[2021-08-05 08:44] LABS: Puncture Site Arterial Line
[2021-08-05 08:45] LABS: Puncture Site Arterial Line
[2021-08-05] MEDS: Famotidine 20 MG TAB PO SCH (10:01)
[2021-08-05] MEDS: Carvedilol 3.125 MG TAB PO SCH (10:02)
[2021-08-05] MEDS: Aspirin 325 MG TAB PO SCH (10:02)
[2021-08-05] MEDS: Polyethylene Glycol 3350 17 GM Packet PO SCH (10:06)
[2021-08-05 16:04] VITALS: BP 104/54; TEMP 97.4
== END 2021-08-05 19:15 | DRG 234 ==
LOC: ERS 14:24 → 2SW 17:53 → OBSVTOIN 07-23 12:39 → CCU 07-28 06:05 → 2NO 07-29 14:02
PROVIDERS: ADMIT Family Medicine; ATTEND Internal Medicine
PROC: 4A023N7 Measurement of Cardiac Sampling and Pressure, Left Heart, Percutaneous Approach (ICD-10-PCS; principal; 2021-07-24)
PROC: B2151ZZ Fluoroscopy of Left Heart using Low Osmolar Contrast (ICD-10-PCS; 2021-07-24)
PROC: B2111ZZ Fluoroscopy of Multiple Coronary Arteries using Low Osmolar Contrast (ICD-10-PCS; 2021-07-24)
PROC: 02100Z9 Bypass Coronary Artery, One Artery from Left Internal Mammary, Open Approach (ICD-10-PCS; 2021-07-28)
PROC: 021109W Bypass Coronary Artery, Two Arteries from Aorta with Autologous Venous Tissue, Open Approach (ICD-10-PCS; 2021-07-28)
PROC: 06BQ4ZZ Excision of Left Saphenous Vein, Percutaneous Endoscopic Approach (ICD-10-PCS; 2021-07-28)
PROC: 02B Heart and Great Vessels, Excision (ICD-10-PCS; 2021-07-28)
PROC: 5A1221Z Performance of Cardiac Output, Continuous (ICD-10-PCS; 2021-07-28)
DX: I21.4 Non-ST elevation (NSTEMI) myocardial infarction (principal); N17.9 Acute kidney failure, unspecified; I47.2 Ventricular tachycardia; E87.2 Acidosis; Z20.822 Contact with and (suspected) exposure to COVID-19; I25.110 Atherosclerotic heart disease of native coronary artery with unstable angina pectoris; I25.5 Ischemic cardiomyopathy; E53.8 Deficiency of other specified B group vitamins; N18.2 Chronic kidney disease, stage 2 (mild); I12.9 Hypertensive chronic kidney disease with stage 1 through stage 4 chronic kidney disease, or unspecified chronic kidney disease; E11.22 Type 2 diabetes mellitus with diabetic chronic kidney disease; Z90.49 Acquired absence of other specified parts of digestive tract; Z87.891 Personal history of nicotine dependence
CPT/HCPCS: 36415; 36416; 36430; 70450; 71045; 80048; 80053; 80069; 82805; 83036; 83735; 83880; 84443; 84484; 85007; 85025; 85027; 85610; 85730; 86850; 86900; 86901; 88304; 88311; 90471; 90662; 90732; 93005; 93010; 93306; 93458; 93798; 94002; 94150; 94760; 96372; 97139; 99152; C1776; G0008; G0009; G0378; J0132; J0690; J1100; J1642; J1644; J1650; J1815; J2001; J2250; J2260; J2405; J2440; J2704; J2720; J3010; J3370; J3475; J3480; J3490; J7050; J7120; P9045; Q9967; S0017; S0028; U0003; U0005

== ENCOUNTER 2021-08-13 15:44 | Inpatient (IN) | payer MEDICARE, MEDICAID ==
[2021-08-13] MEDS ORDERED: Heparin 25,000 units/D5W 500 ML IVPB SCH (19:30)
[2021-08-13] MEDS ORDERED: Heparin 10,000 UNITS/ 10 ML VIAL SLOW IVP SCH (19:30)
[2021-08-13 19:56] LABS: Hemoglobin 11.2 g/dL (14.0-18.0); Platelet Count 242 thou/uL (130-400)
[2021-08-13 20:10] LABS: INR-International Normal Ratio 1.4; Prothrombin Time 17.4 sec (12.0-14.7)
[2021-08-13 20:11] LABS: PTT 53.7 sec (22.9-36.1)
[2021-08-13 20:12] LABS: Heparin Anti 10a (LMWH) 0.94 IU/mL
[2021-08-13] MEDS ORDERED: HYDROcodone/Acetaminophen 5/325 mg Tablet PO PRN (21:53)
[2021-08-13] MEDS ORDERED: Bisacodyl 5 MG TAB PO PRN (21:53)
[2021-08-13] MEDS ORDERED: HYDROcodone/Acetaminophen 7.5/325 mg Tablet PO PRN (21:53)
[2021-08-13] MEDS ORDERED: Acetaminophen 325 MG TAB PO PRN (21:53)
[2021-08-13] MEDS ORDERED: Famotidine 20 MG TAB PO SCH (22:15)
[2021-08-13] MEDS ORDERED: Senokot S 8.6-50 MG TAB PO SCH (22:30)
[2021-08-13] MEDS ORDERED: Dextrose 5% in Water 1,000 ML IV PRN (22:57)
[2021-08-13] MEDS ORDERED: Dextrose 50% Abboject 50 ML SYRINGE SLOW IVP PRN (22:57)
[2021-08-13] MEDS ORDERED: HumaLOG 300 UNITS/3 ML VIAL SC PRN (22:57)
[2021-08-14] MEDS ORDERED: Melatonin 3 MG TAB PO PRN (02:17)
[2021-08-14] MEDS ORDERED: hydrOXYzine 25 MG TAB PO PRN (02:17)
[2021-08-14 04:57] LABS: #Eosinphils 0.1 thou/uL (0.0-0.7); #Lymphocytes 1.7 thou/uL (1.20-3.40); #Monocytes 0.6 thou/uL (0.11-0.59); #Neutrophils 5.5 thou/uL (1.40-6.50); %Basophils 0.3 % (0.0-1.0); %Eosinophils 1.5 % (0.0-10.0); %Lymphocytes 21.5 % (21.0-51.0); %Monocytes 7.4 % (0.0-10.0); %Neutrophils 69.3 % (42.0-75.0); Hemoglobin 10.7 g/dL (14.0-18.0); Mean Corpuscular HGB CONC 33.7 g/dL (32.0-36.0); Mean Corpuscular Hemoglobin 32.8 pg (27.0-31.0); Mean Corpuscular Volume 97.2 fL (78.0-98.0); Mean Platelet Volume 6.5 fL (7.4-10.4); Platelet Count 224 thou/uL (130-400); RBC Distribution Width 13.4 % (11.5-14.5); Red Blood Cell (RBC) Count 3.26 mill/uL (4.70-6.10); White Blood Cell (WBC) Count 7.9 thou/uL (4.8-10.8)
[2021-08-14 05:10] LABS: PTT 213.7 sec (22.9-36.1)
[2021-08-14 05:46] LABS: Anion Gap 12 mmol/L (10-20); BUN (Urea Nitrogen) 19 mg/dL (8.4-25.7); Calc. Creatinine Clearance 87 mL/min (70-130); Calcium 8.5 mg/dL (7.8-10.44); Carbon Dioxide 19 mmol/L (23-31); Chloride 108 mmol/L (98-107); Glucose 147 mg/dL (83-110); Potassium 4.1 mmol/L (3.5-5.1); Sodium 135 mmol/L (136-145)
[2021-08-14 07:26] LABS: Albumin 2.9 g/dL (3.4-4.8)
[2021-08-14 07:29] LABS: Globulin 3.9 g/dL (2.4-3.5); Protein, Total 6.8 g/dL (5.8-8.1)
[2021-08-14 07:31] LABS: Alkaline Phosphatase 84 U/L (40-110); Bilirubin, Total 1.2 mg/dL (0.2-1.2)
[2021-08-14 07:34] LABS: AST (SGOT) 25 U/L (5-34)
[2021-08-14 07:35] LABS: ALT (SGPT) 20 U/L (8-55)
[2021-08-14] MEDS: Famotidine 20 MG TAB PO SCH ×3 (09:22→21:30)
[2021-08-14] MEDS: Ondansetron PF 4 MG/2 ML Vial IVP PRN (09:22)
[2021-08-14] MEDS: Senokot S 8.6-50 MG TAB PO SCH ×2 (09:22→21:25)
[2021-08-14 12:09] LABS: Troponin I 0.077 ng/mL (< 0.028)
[2021-08-14] MEDS ORDERED: Nitroglycerin 0.4 MG TAB (25 Tab Bottle) SL PRN (13:15)
[2021-08-14] MEDS ORDERED: Apixaban 5 MG TAB PO SCH (17:00)
[2021-08-14] MEDS: HumaLOG 300 UNITS/3 ML VIAL SC PRN (17:31)
[2021-08-14] MEDS ORDERED: Carvedilol 3.125 MG TAB PO SCH (21:00)
[2021-08-14] MEDS: Atorvastatin Calcium 20 MG TAB PO SCH (21:25)
[2021-08-15] MEDS: Ondansetron PF 4 MG/2 ML Vial IVP PRN (03:03)
[2021-08-15] MEDS: HumaLOG 300 UNITS/3 ML VIAL SC PRN (06:12)
[2021-08-15 09:09] VITALS: BMI 21.3
[2021-08-15] MEDS: Apixaban 5 MG TAB PO SCH ×2 (09:19→20:52)
[2021-08-15] MEDS: Aspirin 325 MG TAB PO SCH (09:19)
[2021-08-15] MEDS: Senokot S 8.6-50 MG TAB PO SCH ×2 (09:19→20:51)
[2021-08-15] MEDS: Famotidine 20 MG TAB PO SCH ×3 (09:20→20:51)
[2021-08-15 14:39] LABS: #Eosinphils 0.2 thou/uL (0.0-0.7); #Lymphocytes 1.8 thou/uL (1.20-3.40); #Monocytes 0.5 thou/uL (0.11-0.59); %Basophils 0.2 % (0.0-1.0); %Eosinophils 2.3 % (0.0-10.0); %Lymphocytes 24.4 % (21.0-51.0); %Monocytes 6.2 % (0.0-10.0); %Neutrophils 66.9 % (42.0-75.0); Hemoglobin 10.5 g/dL (14.0-18.0); Mean Corpuscular HGB CONC 33.5 g/dL (32.0-36.0); Mean Corpuscular Hemoglobin 32.3 pg (27.0-31.0); Mean Corpuscular Volume 96.4 fL (78.0-98.0); Mean Platelet Volume 6.5 fL (7.4-10.4); Platelet Count 206 thou/uL (130-400); RBC Distribution Width 13.3 % (11.5-14.5); Red Blood Cell (RBC) Count 3.24 mill/uL (4.70-6.10); White Blood Cell (WBC) Count 7.5 thou/uL (4.8-10.8)
[2021-08-15] MEDS: Carvedilol 3.125 MG TAB PO SCH (17:04)
[2021-08-15 20:00] LABS: Hemoglobin 10.3 g/dL (14.0-18.0); Platelet Count 194 thou/uL (130-400)
[2021-08-15] MEDS: Atorvastatin Calcium 20 MG TAB PO SCH (20:50)
[2021-08-16] MEDS: Apixaban 5 MG TAB PO SCH ×2 (09:10→20:51)
[2021-08-16] MEDS: Famotidine 20 MG TAB PO SCH ×2 (09:10→20:51)
[2021-08-16] MEDS: Aspirin 325 MG TAB PO SCH (09:10)
[2021-08-16] MEDS: Senokot S 8.6-50 MG TAB PO SCH ×2 (09:11→20:52)
[2021-08-16] MEDS: Carvedilol 3.125 MG TAB PO SCH ×2 (09:11→16:32)
[2021-08-16] MEDS: Atorvastatin Calcium 20 MG TAB PO SCH (20:52)
[2021-08-17] MEDS: Aspirin 325 MG TAB PO SCH (09:53)
[2021-08-17] MEDS: Apixaban 5 MG TAB PO SCH ×2 (09:53→21:17)
[2021-08-17] MEDS: Carvedilol 3.125 MG TAB PO SCH (09:54)
[2021-08-17] MEDS: Famotidine 20 MG TAB PO SCH ×2 (09:54→21:18)
[2021-08-17] MEDS: Senokot S 8.6-50 MG TAB PO SCH ×2 (09:54→21:18)
[2021-08-17] MEDS ORDERED: Sodium Chloride 0.9% 500 ML IV SCH (10:15)
[2021-08-17] MEDS: Sodium Chloride 0.9% 1,000 ML IV SCH (14:05)
[2021-08-17 15:14] LABS: #Eosinphils 0.1 thou/uL (0.0-0.7); #Lymphocytes 1.4 thou/uL (1.20-3.40); #Monocytes 0.4 thou/uL (0.11-0.59); #Neutrophils 3.1 thou/uL (1.40-6.50); %Basophils 0.6 % (0.0-1.0); %Eosinophils 2.8 % (0.0-10.0); %Neutrophils 60.5 % (42.0-75.0); Hemoglobin 9.8 g/dL (14.0-18.0); Mean Corpuscular HGB CONC 33.9 g/dL (32.0-36.0); Mean Corpuscular Hemoglobin 32.2 pg (27.0-31.0); Mean Corpuscular Volume 95.1 fL (78.0-98.0); Mean Platelet Volume 6.5 fL (7.4-10.4); Platelet Count 200 thou/uL (130-400); RBC Distribution Width 13.2 % (11.5-14.5); Red Blood Cell (RBC) Count 3.05 mill/uL (4.70-6.10); White Blood Cell (WBC) Count 5.1 thou/uL (4.8-10.8)
[2021-08-17 15:32] LABS: Lactic Acid 1.8 mmol/L (0.5-2.2)
[2021-08-17 15:40] LABS: ALT (SGPT) 62 U/L (8-55); AST (SGOT) 50 U/L (5-34); Albumin 2.7 g/dL (3.4-4.8); Alkaline Phosphatase 91 U/L (40-110); Anion Gap 12 mmol/L (10-20); BUN (Urea Nitrogen) 15 mg/dL (8.4-25.7); Bilirubin, Total 0.5 mg/dL (0.2-1.2); Calc. Creatinine Clearance 90 mL/min (70-130); Calcium 8.2 mg/dL (7.8-10.44); Carbon Dioxide 20 mmol/L (23-31); Chloride 108 mmol/L (98-107); Globulin 3.8 g/dL (2.4-3.5); Glucose 167 mg/dL (83-110); Potassium 3.8 mmol/L (3.5-5.1); Protein, Total 6.5 g/dL (5.8-8.1); Sodium 136 mmol/L (136-145)
[2021-08-17 19:39] LABS: Hemoglobin 9.4 g/dL (14.0-18.0); Platelet Count 204 thou/uL (130-400)
[2021-08-17] MEDS: Atorvastatin Calcium 20 MG TAB PO SCH (21:18)
[2021-08-18] MEDS: Sodium Chloride 0.9% 1,000 ML IV SCH (02:03)
[2021-08-18] MEDS: Apixaban 5 MG TAB PO SCH ×2 (09:29→20:31)
[2021-08-18] MEDS: Aspirin 325 MG TAB PO SCH (09:29)
[2021-08-18] MEDS: Senokot S 8.6-50 MG TAB PO SCH ×2 (09:30→20:34)
[2021-08-18] MEDS: Famotidine 20 MG TAB PO SCH ×2 (09:30→20:31)
[2021-08-18] MEDS: HumaLOG 300 UNITS/3 ML VIAL SC PRN (18:05)
[2021-08-18] MEDS: Atorvastatin Calcium 20 MG TAB PO SCH (20:31)
[2021-08-19] MEDS: Aspirin 325 MG TAB PO SCH (09:00)
[2021-08-19] MEDS: Famotidine 20 MG TAB PO SCH ×2 (09:00→20:55)
[2021-08-19] MEDS: Apixaban 5 MG TAB PO SCH ×2 (09:00→20:55)
[2021-08-19] MEDS: Senokot S 8.6-50 MG TAB PO SCH ×2 (09:00→20:55)
[2021-08-19] MEDS: HumaLOG 300 UNITS/3 ML VIAL SC PRN (12:26)
[2021-08-19 20:07] LABS: Hemoglobin 9.4 g/dL (14.0-18.0); Platelet Count 210 thou/uL (130-400)
[2021-08-19] MEDS: Midodrine HCl 5 MG TAB PO SCH (20:55)
[2021-08-19] MEDS: Atorvastatin Calcium 20 MG TAB PO SCH (20:55)
[2021-08-20] MEDS: Apixaban 5 MG TAB PO SCH (10:12)
[2021-08-20] MEDS: Aspirin 325 MG TAB PO SCH (10:22)
[2021-08-20] MEDS: Famotidine 20 MG TAB PO SCH (10:22)
[2021-08-20] MEDS: Senokot S 8.6-50 MG TAB PO SCH (10:22)
[2021-08-20] MEDS: Midodrine HCl 5 MG TAB PO SCH (10:22)
[2021-08-20 11:52] VITALS: BP 150/71; TEMP 98.2
[2021-08-21] MEDS ORDERED: Apixaban 5 MG TAB PO SCH (21:00)
== END 2021-08-20 16:15 | disposition home or self-care (01) | DRG 175 ==
LOC: 2NO 16:58
PROVIDERS: ADMIT Internal Medicine; ATTEND Internal Medicine
DX: I26.99 Other pulmonary embolism without acute cor pulmonale (principal); J96.01 Acute respiratory failure with hypoxia; I50.43 Acute on chronic combined systolic (congestive) and diastolic (congestive) heart failure; J98.11 Atelectasis; E44.0 Moderate protein-calorie malnutrition; E11.9 Type 2 diabetes mellitus without complications; F32.A Depression, unspecified; I11.0 Hypertensive heart disease with heart failure; E11.65 Type 2 diabetes mellitus with hyperglycemia; I95.1 Orthostatic hypotension; I25.10 Atherosclerotic heart disease of native coronary artery without angina pectoris; I25.5 Ischemic cardiomyopathy; Z79.82 Long term (current) use of aspirin; Z79.899 Other long term (current) drug therapy; Z95.1 Presence of aortocoronary bypass graft; Z90.49 Acquired absence of other specified parts of digestive tract; Z68.21 Body mass index [BMI] 21.0-21.9, adult
CPT/HCPCS: 36415; 36416; 80053; 83605; 83880; 84484; 85014; 85018; 85025; 85049; 85520; 85610; 85730; 93306; J1644; J1815; J2405; J7030; J7050

== ENCOUNTER 2022-07-10 09:38 | Inpatient (IN) | payer MEDICARE, MEDICAID ==
[2022-07-10 10:18] LABS: #Eosinphils 0.2 thou/uL (0.0-0.7); #Lymphocytes 2.4 thou/uL (1.20-3.40); #Monocytes 0.4 thou/uL (0.11-0.59); #Neutrophils 3.6 thou/uL (1.40-6.50); %Basophils 0.4 % (0.0-1.0); %Eosinophils 2.5 % (0.0-10.0); %Lymphocytes 37.2 % (21.0-51.0); %Monocytes 5.7 % (0.0-10.0); %Neutrophils 54.3 % (42.0-75.0); Mean Corpuscular HGB CONC 33.6 g/dL (32.0-36.0); Mean Corpuscular Hemoglobin 31.7 pg (27.0-31.0); Mean Corpuscular Volume 94.1 fl (78.0-98.0); Mean Platelet Volume 7.4 fL (7.4-10.4); Platelet Count 146 10x3/uL (130-400); Red Blood Cell (RBC) Count 4.41 mill/uL (4.70-6.10); White Blood Cell (WBC) Count 6.6 10x3/uL (4.8-10.8)
[2022-07-10] MEDS ORDERED: Heparin 10,000 UNITS/ 10 ML VIAL ONE (10:23)
[2022-07-10] MEDS ORDERED: Amiodarone 150 MG/3 ML VIAL ONE ×3 (10:26→10:48)
[2022-07-10 10:31] LABS: INR-International Normal Ratio 1.1; PTT 23.7 sec (22.9-36.1); Prothrombin Time 14.7 sec (12.0-14.7)
[2022-07-10] MEDS ORDERED: FENTANYL 50 MCG/ML 1 ML VIAL ONE (10:32)
[2022-07-10] MEDS ORDERED: Aggrastat 12.5 MG/250 ML 250 ML ONE (10:41)
[2022-07-10] MEDS ORDERED: Norepinephrine 4 MG/4 ML VIAL ONE (10:42)
[2022-07-10 10:48] LABS: ALT (SGPT) 11 U/L (8-55); AST (SGOT) 16 U/L (5-34); Albumin 3.8 g/dL (3.4-4.8); Alkaline Phosphatase 63 U/L (40-110); Anion Gap 14 mmol/L (10-20); BUN (Urea Nitrogen) 23 mg/dL (8.4-25.7); Bilirubin, Total 0.6 mg/dL (0.2-1.2); Calc. Creatinine Clearance 0 mL/min (70-130); Calcium 8.6 mg/dL (7.8-10.44); Carbon Dioxide 17 mmol/L (23-31); Chloride 111 mmol/L (98-107); Estimated GFR 47; Globulin 3.5 g/dL (2.4-3.5); Glucose 199 mg/dL (83-110); Potassium 4.1 mmol/L (3.5-5.1); Protein, Total 7.3 g/dL (5.8-8.1); Sodium 138 mmol/L (136-145)
[2022-07-10 11:05] LABS: CKMB 5.8 ng/mL (0-6.6)
[2022-07-10] MEDS ORDERED: TICAGRELOR 90 MG TABLET ONE (11:06)
[2022-07-10] MEDS ORDERED: Morphine 4 MG/ML VIAL SLOW IVP PRN (11:30)
[2022-07-10 12:39] LABS: CKMB 101.3 ng/mL (0-6.6)
[2022-07-10 12:41] LABS: Troponin I 5.481 ng/mL (< 0.028)
[2022-07-10] MEDS ORDERED: Amiodarone 450 MG in Dextrose 5% in Water 250 ML IVPB SCH (13:30)
[2022-07-10] MEDS ORDERED: Aggrastat 12.5 MG/250 ML 250 ML IVPB SCH (13:30)
[2022-07-10 18:04] LABS: CKMB 194.1 ng/mL (0-6.6)
[2022-07-10 18:26] LABS: Troponin I 158.025 ng/mL (< 0.028)
[2022-07-10] MEDS: Atorvastatin Calcium 40 MG TAB PO SCH (20:10)
[2022-07-10] MEDS: TICAGRELOR 90 MG TABLET PO SCH (20:12)
[2022-07-10] MEDS: Ondansetron PF 4 MG/2 ML Vial IVP PRN (23:55)
[2022-07-11 04:14] LABS: #Lymphocytes 1.4 thou/uL (1.20-3.40); #Monocytes 0.4 thou/uL (0.11-0.59); #Neutrophils 6.2 thou/uL (1.40-6.50); %Basophils 0.1 % (0.0-1.0); %Eosinophils 0.4 % (0.0-10.0); %Lymphocytes 17.8 % (21.0-51.0); %Monocytes 4.8 % (0.0-10.0); Hemoglobin 13.4 g/dL (14.0-18.0); Mean Corpuscular HGB CONC 34.3 g/dL (32.0-36.0); Mean Corpuscular Hemoglobin 32.5 pg (27.0-31.0); Mean Corpuscular Volume 94.6 fl (78.0-98.0); Mean Platelet Volume 7.4 fL (7.4-10.4); Platelet Count 151 10x3/uL (130-400); Red Blood Cell (RBC) Count 4.12 mill/uL (4.70-6.10); White Blood Cell (WBC) Count 8.1 10x3/uL (4.8-10.8)
[2022-07-11 04:48] LABS: ALT (SGPT) 32 U/L (8-55); AST (SGOT) 199 U/L (5-34); Albumin 3.2 g/dL (3.4-4.8); Alkaline Phosphatase 55 U/L (40-110); Anion Gap 14 mmol/L (10-20); BUN (Urea Nitrogen) 20 mg/dL (8.4-25.7); Bilirubin, Total 0.9 mg/dL (0.2-1.2); Calc. Creatinine Clearance 66 mL/min (70-130); Calcium 8.2 mg/dL (7.8-10.44); Carbon Dioxide 14 mmol/L (23-31); Chloride 115 mmol/L (98-107); Estimated GFR 58; Globulin 3.3 g/dL (2.4-3.5); Glucose 143 mg/dL (83-110); Potassium 4.2 mmol/L (3.5-5.1); Protein, Total 6.5 g/dL (5.8-8.1); Sodium 139 mmol/L (136-145)
[2022-07-11] MEDS: Ondansetron PF 4 MG/2 ML Vial IVP PRN (09:02)
[2022-07-11] MEDS: Aspirin Chewable 81 MG TAB PO SCH (11:17)
[2022-07-11] MEDS: TICAGRELOR 90 MG TABLET PO SCH ×2 (11:17→20:16)
[2022-07-11 12:34] LABS: Troponin I 126.484 ng/mL (< 0.028)
[2022-07-11] MEDS: Atorvastatin Calcium 40 MG TAB PO SCH (20:16)
[2022-07-12] MEDS: Ondansetron PF 4 MG/2 ML Vial IVP PRN (00:46)
[2022-07-12 06:37] VITALS: BMI 23.1
[2022-07-12] MEDS: Aspirin Chewable 81 MG TAB PO SCH (09:02)
[2022-07-12] MEDS: TICAGRELOR 90 MG TABLET PO SCH ×2 (09:02→20:37)
[2022-07-12] MEDS ORDERED: Mag-Al 1200 mg/1200 mg/30 ML UDCUP PO PRN (17:13)
[2022-07-12] MEDS: Atorvastatin Calcium 40 MG TAB PO SCH (20:37)
[2022-07-12] MEDS: Enoxaparin Sodium 40 MG/0.4 ML SYRINGE SC SCH (20:37)
[2022-07-13] MEDS: Empagliflozin 10 MG TAB PO SCH (08:48)
[2022-07-13] MEDS: Aspirin Chewable 81 MG TAB PO SCH (08:48)
[2022-07-13] MEDS: TICAGRELOR 90 MG TABLET PO SCH ×2 (09:47→20:36)
[2022-07-13] MEDS: Atorvastatin Calcium 40 MG TAB PO SCH (20:35)
[2022-07-13] MEDS: Enoxaparin Sodium 40 MG/0.4 ML SYRINGE SC SCH (20:35)
[2022-07-14] MEDS: TICAGRELOR 90 MG TABLET PO SCH ×2 (09:38→20:50)
[2022-07-14] MEDS: Empagliflozin 10 MG TAB PO SCH (09:38)
[2022-07-14] MEDS: Aspirin Chewable 81 MG TAB PO SCH (09:38)
[2022-07-14] MEDS: Enoxaparin Sodium 40 MG/0.4 ML SYRINGE SC SCH (20:49)
[2022-07-14] MEDS: Atorvastatin Calcium 40 MG TAB PO SCH (20:50)
[2022-07-15] MEDS: Aspirin Chewable 81 MG TAB PO SCH (10:10)
[2022-07-15] MEDS: Empagliflozin 10 MG TAB PO SCH (10:10)
[2022-07-15] MEDS: TICAGRELOR 90 MG TABLET PO SCH (10:11)
[2022-07-15 19:13] VITALS: BP 107/65; TEMP 98.2
== END 2022-07-15 19:57 | DRG 246 ==
LOC: ERS 09:38 → SDC 10:01 → CCU 11:44 → NEURO 07-13 01:31
PROVIDERS: ADMIT Internal Medicine Cardiovascular Disease; ATTEND Internal Medicine Cardiovascular Disease
PROC: 027034Z Dilation of Coronary Artery, One Artery with Drug-eluting Intraluminal Device, Percutaneous Approach (ICD-10-PCS; principal; 2022-07-10)
PROC: 02C03ZZ Extirpation of Matter from Coronary Artery, One Artery, Percutaneous Approach (ICD-10-PCS; 2022-07-10)
PROC: 4A023N7 Measurement of Cardiac Sampling and Pressure, Left Heart, Percutaneous Approach (ICD-10-PCS; 2022-07-10)
PROC: B2151ZZ Fluoroscopy of Left Heart using Low Osmolar Contrast (ICD-10-PCS; 2022-07-10)
PROC: B2111ZZ Fluoroscopy of Multiple Coronary Arteries using Low Osmolar Contrast (ICD-10-PCS; 2022-07-10)
DX: I21.19 ST elevation (STEMI) myocardial infarction involving other coronary artery of inferior wall (principal); R57.0 Cardiogenic shock; I44.2 Atrioventricular block, complete; I47.1 Supraventricular tachycardia; I25.10 Atherosclerotic heart disease of native coronary artery without angina pectoris; I25.5 Ischemic cardiomyopathy; I10 Essential (primary) hypertension; E11.9 Type 2 diabetes mellitus without complications; Z79.899 Other long term (current) drug therapy
CPT/HCPCS: 33210; 36415; 36556; 80053; 82553; 83735; 84484; 85025; 85347; 85610; 85730; 92928; 92941; 92973; 93005; 93010; 93306; 93455; 93798; 97139; C1769; C1874; C1887; C1888; C9600; C9606; J0282; J1644; J1650; J2270; J2405; J3010; J3246; U0003; U0005

== ENCOUNTER 2022-09-18 15:57 | Inpatient (IN) | payer MEDICARE, MEDICAID ==
[~2022-09-18 15:57] MED LIST: Iopamidol-370 76% 500 ML 1 ML ONE
[2022-09-18 16:29] LABS: #Eosinphils 0.2 thou/uL (0.0-0.7); #Lymphocytes 1.4 thou/uL (1.20-3.40); #Monocytes 0.8 thou/uL (0.11-0.59); #Neutrophils 4.7 thou/uL (1.40-6.50); %Basophils 0.3 % (0.0-1.0); %Eosinophils 2.5 % (0.0-10.0); %Lymphocytes 19.9 % (21.0-51.0); %Monocytes 11.2 % (0.0-10.0); %Neutrophils 66.1 % (42.0-75.0); Hemoglobin 8.6 g/dL (14.0-18.0); Mean Corpuscular HGB CONC 32.1 g/dL (32.0-36.0); Mean Corpuscular Hemoglobin 27.7 pg (27.0-31.0); Mean Corpuscular Volume 86.2 fl (78.0-98.0); Mean Platelet Volume 7.7 fL (7.4-10.4); Platelet Count 251 10x3/uL (130-400); RBC Distribution Width 14.5 % (11.5-14.5); Red Blood Cell (RBC) Count 3.12 mill/uL (4.70-6.10)
[2022-09-18 16:50] LABS: ALT (SGPT) Less than 7 U/L (8-55); AST (SGOT) 11 U/L (5-34); Albumin 3.6 g/dL (3.4-4.8); Alkaline Phosphatase 63 U/L (40-110); Anion Gap 12 mmol/L (10-20); BUN (Urea Nitrogen) 20 mg/dL (8.4-25.7); Bilirubin, Total 0.9 mg/dL (0.2-1.2); Calc. Creatinine Clearance 0 mL/min (70-130); Carbon Dioxide 20 mmol/L (23-31); Chloride 108 mmol/L (98-107); Estimated GFR 58; Globulin 3.3 g/dL (2.4-3.5); Glucose 180 mg/dL (83-110); Potassium 4.2 mmol/L (3.5-5.1); Protein, Total 6.9 g/dL (5.8-8.1); Sodium 136 mmol/L (136-145)
[2022-09-18] MEDS ORDERED: cefTRIAXone\\ROCEPHIN 1 GM VIAL ONE (17:10)
[2022-09-18 17:26] LABS: CKMB 1.6 ng/mL (0-6.6)
[2022-09-18 18:05] LABS: SARS-CoV-2 NAA Rapid Test Not Detected (NotDetected)
[2022-09-18] MEDS ORDERED: Azithromycin 500 MG VIAL ONE (18:39)
[2022-09-18] MEDS ORDERED: Mag-Al 1200 mg/1200 mg/30 ML UDCUP ONE (18:47)
[2022-09-18] MEDS ORDERED: Lidocaine Viscous Sol 2% 15 ml UD Cup ONE (18:47)
[2022-09-18] MEDS ORDERED: Ondansetron ODT 4 MG TAB ONE (19:32)
[2022-09-18 20:44] LABS: Lactic Acid 5.7 mmol/L (0.5-2.2)
[2022-09-18] MEDS ORDERED: Pantoprazole 40 MG VIAL IVP SCH (22:00)
[2022-09-18 22:08] LABS: INR-International Normal Ratio 1.3; PTT 28.6 sec (22.9-36.1); Prothrombin Time 16.7 sec (12.0-14.7)
[2022-09-18] MEDS ORDERED: Acetaminophen 325 MG TAB PO PRN (22:18)
[2022-09-18] MEDS ORDERED: HumaLOG 300 UNITS/3 ML VIAL SC PRN (22:37)
[2022-09-18] MEDS ORDERED: Dextrose 50% Abboject 50 ML SYRINGE SLOW IVP PRN (22:37)
[2022-09-18] MEDS ORDERED: Dextrose 5% in Water 1,000 ML IV PRN (22:37)
[2022-09-18] MEDS ORDERED: Furosemide 20 MG/2 ML VIAL SLOW IVP SCH (23:00)
[2022-09-18 23:01] LABS: #Eosinphils 0.1 thou/uL (0.0-0.7); #Monocytes 0.6 thou/uL (0.11-0.59); #Neutrophils 5.9 thou/uL (1.40-6.50); %Basophils 0.2 % (0.0-1.0); %Eosinophils 0.7 % (0.0-10.0); %Lymphocytes 12.8 % (21.0-51.0); %Monocytes 8.4 % (0.0-10.0); Hemoglobin 8.1 g/dL (14.0-18.0); Mean Corpuscular HGB CONC 32.9 g/dL (32.0-36.0); Mean Corpuscular Hemoglobin 28.5 pg (27.0-31.0); Mean Corpuscular Volume 86.5 fl (78.0-98.0); Platelet Count 242 10x3/uL (130-400); RBC Distribution Width 14.7 % (11.5-14.5); Red Blood Cell (RBC) Count 2.85 mill/uL (4.70-6.10); White Blood Cell (WBC) Count 7.5 10x3/uL (4.8-10.8)
[2022-09-18 23:23] LABS: Lactic Acid 2.9 mmol/L (0.5-2.2)
[2022-09-18 23:25] LABS: Troponin I 0.057 ng/mL (< 0.028)
[2022-09-18] MEDS: Ipratropium/Albuterol 3 ML NEB NEB SCH (23:38)
[2022-09-18 23:58] VITALS: BMI 20.7
[2022-09-19] MEDS ORDERED: VANCOMYCIN 2 GRAM/500 ML BAG 2 GM in Premix Bag 1 BAG IVPB SCH (00:45)
[2022-09-19] MEDS: Cefepime 2 GM in Sodium Chloride 0.9% 100 ML IVPB SCH ×2 (01:08→15:05)
[2022-09-19 01:47] LABS: Troponin I 0.062 ng/mL (< 0.028)
[2022-09-19] MEDS ORDERED: Midodrine HCl 5 MG TAB PO SCH (04:15)
[2022-09-19 04:35] LABS: #Eosinphils 0.1 thou/uL (0.0-0.7); #Lymphocytes 1.7 thou/uL (1.20-3.40); #Monocytes 0.9 thou/uL (0.11-0.59); #Neutrophils 4.1 thou/uL (1.40-6.50); %Basophils 0.4 % (0.0-1.0); %Monocytes 13.1 % (0.0-10.0); %Neutrophils 60.6 % (42.0-75.0); Hemoglobin 7.8 g/dL (14.0-18.0); Mean Corpuscular HGB CONC 32.5 g/dL (32.0-36.0); Mean Corpuscular Hemoglobin 28.3 pg (27.0-31.0); Mean Corpuscular Volume 86.8 fl (78.0-98.0); Mean Platelet Volume 8.2 fL (7.4-10.4); Platelet Count 223 10x3/uL (130-400); RBC Distribution Width 14.6 % (11.5-14.5); Red Blood Cell (RBC) Count 2.76 mill/uL (4.70-6.10); White Blood Cell (WBC) Count 6.8 10x3/uL (4.8-10.8)
[2022-09-19 04:54] LABS: Lactic Acid 1.6 mmol/L (0.5-2.2)
[2022-09-19 04:59] LABS: Anion Gap 12 mmol/L (10-20); BUN (Urea Nitrogen) 19 mg/dL (8.4-25.7); Calc. Creatinine Clearance 64 mL/min (70-130); Calcium 8.3 mg/dL (7.8-10.44); Carbon Dioxide 17 mmol/L (23-31); Chloride 109 mmol/L (98-107); Estimated GFR 68; Glucose 132 mg/dL (83-110); Potassium 4.1 mmol/L (3.5-5.1); Sodium 134 mmol/L (136-145)
[2022-09-19] MEDS ORDERED: Cefepime 1 GM in Sodium Chloride 0.9% 100 ML IVPB SCH (05:00)
[2022-09-19] MEDS: Furosemide 20 MG/2 ML VIAL SLOW IVP SCH ×2 (05:49→15:16)
[2022-09-19] MEDS: Ipratropium/Albuterol 3 ML NEB NEB SCH ×3 (07:41→19:08)
[2022-09-19] MEDS: Midodrine HCl 5 MG TAB PO SCH ×4 (09:42→22:37)
[2022-09-19] MEDS: Pantoprazole 40 MG VIAL IVP SCH ×2 (09:43→20:21)
[2022-09-19 11:10] LABS: Hemoglobin 7.9 g/dL (14.0-18.0)
[2022-09-19] MEDS ORDERED: Furosemide 20 MG/2 ML VIAL SLOW IVP SCH (16:30)
[2022-09-19] MEDS: HumaLOG 300 UNITS/3 ML VIAL SC PRN (18:40)
[2022-09-19 20:13] LABS: Hemoglobin 7.7 g/dL (14.0-18.0)
[2022-09-19] MEDS: TICAGRELOR 90 MG TABLET PO SCH (22:40)
[2022-09-20] MEDS: Ipratropium/Albuterol 3 ML NEB NEB SCH ×5 (00:31→23:26)
[2022-09-20] MEDS ORDERED: Vancomycin 1.5 GRAM/300 ML BAG 1.5 GM in Premix Bag 1 BAG IVPB SCH (02:00)
[2022-09-20 05:06] LABS: #Eosinphils 0.3 thou/uL (0.0-0.7); #Lymphocytes 1.4 thou/uL (1.20-3.40); #Monocytes 0.6 thou/uL (0.11-0.59); #Neutrophils 3.4 thou/uL (1.40-6.50); %Basophils 0.5 % (0.0-1.0); %Eosinophils 4.4 % (0.0-10.0); %Monocytes 10.9 % (0.0-10.0); %Neutrophils 60.1 % (42.0-75.0); Hemoglobin 7.7 g/dL (14.0-18.0); Mean Corpuscular HGB CONC 32.1 g/dL (32.0-36.0); Mean Corpuscular Hemoglobin 27.4 pg (27.0-31.0); Mean Corpuscular Volume 85.3 fl (78.0-98.0); Mean Platelet Volume 8.2 fL (7.4-10.4); Platelet Count 239 10x3/uL (130-400); RBC Distribution Width 14.8 % (11.5-14.5); Red Blood Cell (RBC) Count 2.82 mill/uL (4.70-6.10); White Blood Cell (WBC) Count 5.6 10x3/uL (4.8-10.8)
[2022-09-20 05:24] LABS: Anion Gap 15 mmol/L (10-20); BUN (Urea Nitrogen) 20 mg/dL (8.4-25.7); Calc. Creatinine Clearance 55 mL/min (70-130); Calcium 8.9 mg/dL (7.8-10.44); Carbon Dioxide 18 mmol/L (23-31); Chloride 107 mmol/L (98-107); Estimated GFR 56; Glucose 145 mg/dL (83-110); Potassium 4.1 mmol/L (3.5-5.1); Sodium 136 mmol/L (136-145)
[2022-09-20] MEDS: Midodrine HCl 5 MG TAB PO SCH ×3 (09:31→20:38)
[2022-09-20] MEDS: Aspirin 81 mg Enteric Coated Tablet PO SCH (09:33)
[2022-09-20] MEDS: Furosemide 40 MG TAB PO SCH ×2 (09:34→15:17)
[2022-09-20] MEDS: TICAGRELOR 90 MG TABLET PO SCH ×2 (09:34→20:38)
[2022-09-20] MEDS: Pantoprazole 40 MG VIAL IVP SCH ×2 (09:35→20:39)
[2022-09-20] MEDS: Ondansetron PF 4 MG/2 ML Vial IVP PRN (11:18)
[2022-09-20] MEDS ORDERED: Cyanocobalamin 1000 MCG/ML VIAL IM SCH (13:00)
[2022-09-21 03:57] LABS: #Eosinphils 0.3 thou/uL (0.0-0.7); #Lymphocytes 1.8 thou/uL (1.20-3.40); #Monocytes 0.8 thou/uL (0.11-0.59); #Neutrophils 3.5 thou/uL (1.40-6.50); %Basophils 0.5 % (0.0-1.0); %Eosinophils 4.5 % (0.0-10.0); %Lymphocytes 28.6 % (21.0-51.0); %Monocytes 11.9 % (0.0-10.0); %Neutrophils 54.5 % (42.0-75.0); Hemoglobin 7.5 g/dL (14.0-18.0); Mean Corpuscular HGB CONC 32.1 g/dL (32.0-36.0); Mean Corpuscular Hemoglobin 27.2 pg (27.0-31.0); Mean Corpuscular Volume 84.7 fl (78.0-98.0); Platelet Count 240 10x3/uL (130-400); RBC Distribution Width 14.9 % (11.5-14.5); Red Blood Cell (RBC) Count 2.75 mill/uL (4.70-6.10); White Blood Cell (WBC) Count 6.4 10x3/uL (4.8-10.8)
[2022-09-21 04:20] LABS: Anion Gap 16 mmol/L (10-20); BUN (Urea Nitrogen) 21 mg/dL (8.4-25.7); Calc. Creatinine Clearance 59 mL/min (70-130); Calcium 8.6 mg/dL (7.8-10.44); Carbon Dioxide 18 mmol/L (23-31); Chloride 105 mmol/L (98-107); Estimated GFR 62; Glucose 128 mg/dL (83-110); Potassium 3.4 mmol/L (3.5-5.1); Sodium 136 mmol/L (136-145)
[2022-09-21] MEDS ORDERED: Potassium Bicarbonate/Cit Ac 20 MEQ TAB PO SCH (07:30)
[2022-09-21] MEDS: Cyanocobalamin 1000 MCG/ML VIAL IM SCH (09:26)
[2022-09-21] MEDS: Pantoprazole 40 MG VIAL IVP SCH ×2 (09:27→22:39)
[2022-09-21] MEDS: Midodrine HCl 5 MG TAB PO SCH ×3 (09:27→22:36)
[2022-09-21] MEDS: Aspirin 81 mg Enteric Coated Tablet PO SCH (09:27)
[2022-09-21] MEDS: TICAGRELOR 90 MG TABLET PO SCH ×2 (09:27→22:38)
[2022-09-21] MEDS: Furosemide 40 MG TAB PO SCH (09:27)
[2022-09-21] MEDS ORDERED: Iron, Sodium Ferric Gluconate 250 MG in Sodium Chloride 0.9% 250 ML 250 ML IVPB SCH (11:00)
[2022-09-21] MEDS: Ondansetron PF 4 MG/2 ML Vial IVP PRN (11:49)
[2022-09-21] MEDS: HumaLOG 300 UNITS/3 ML VIAL SC PRN ×2 (14:17→16:57)
[2022-09-21] MEDS ORDERED: DOBUTamine 500 mg/250 ml 250 ML IVPB SCH (17:00)
[2022-09-21] MEDS: Ipratropium/Albuterol 3 ML NEB NEB PRN ×2 (19:28→23:26)
[2022-09-22 04:53] LABS: #Eosinphils 0.2 thou/uL (0.0-0.7); #Lymphocytes 1.3 thou/uL (1.20-3.40); #Monocytes 0.6 thou/uL (0.11-0.59); #Neutrophils 3.9 thou/uL (1.40-6.50); %Basophils 0.6 % (0.0-1.0); %Eosinophils 3.8 % (0.0-10.0); %Lymphocytes 21.2 % (21.0-51.0); %Monocytes 10.2 % (0.0-10.0); %Neutrophils 64.2 % (42.0-75.0); Hemoglobin 7.3 g/dL (14.0-18.0); Mean Corpuscular HGB CONC 32.9 g/dL (32.0-36.0); Mean Corpuscular Hemoglobin 27.8 pg (27.0-31.0); Mean Corpuscular Volume 84.5 fl (78.0-98.0); Mean Platelet Volume 8.1 fL (7.4-10.4); Platelet Count 215 10x3/uL (130-400); RBC Distribution Width 14.9 % (11.5-14.5); White Blood Cell (WBC) Count 6.1 10x3/uL (4.8-10.8)
[2022-09-22 05:12] LABS: Anion Gap 11 mmol/L (10-20); BUN (Urea Nitrogen) 23 mg/dL (8.4-25.7); Calc. Creatinine Clearance 56 mL/min (70-130); Calcium 8.4 mg/dL (7.8-10.44); Carbon Dioxide 19 mmol/L (23-31); Chloride 106 mmol/L (98-107); Estimated GFR 61; Glucose 116 mg/dL (83-110); Potassium 3.3 mmol/L (3.5-5.1); Sodium 133 mmol/L (136-145)
[2022-09-22] MEDS: Furosemide 40 MG TAB PO SCH (08:31)
[2022-09-22] MEDS: Aspirin 81 mg Enteric Coated Tablet PO SCH (08:31)
[2022-09-22] MEDS: Cyanocobalamin 1000 MCG/ML VIAL IM SCH (08:31)
[2022-09-22] MEDS: Pantoprazole 40 MG VIAL IVP SCH ×2 (08:33→21:10)
[2022-09-22] MEDS: Midodrine HCl 5 MG TAB PO SCH ×3 (08:33→21:10)
[2022-09-22] MEDS: Clopidogrel Bisulfate 75 MG TAB PO SCH (08:38)
[2022-09-22] MEDS: HumaLOG 300 UNITS/3 ML VIAL SC PRN (12:27)
[2022-09-22] MEDS ORDERED: DOBUTamine 500 mg/250 ml 250 ML IVPB SCH (17:33)
[2022-09-22] MEDS ORDERED: DOBUTamine 500 mg/250 ml 500 MG in Premix Bag 1 BAG IVPB SCH (17:45)
[2022-09-23] MEDS ORDERED: Sodium Chloride 0.9% 250 ML IV SCH (02:00)
[2022-09-23] MEDS ORDERED: Sodium Chloride 0.9% 250 ML 250 ML IV SCH (02:15)
[2022-09-23 03:02] LABS: #Eosinphils 0.3 thou/uL (0.0-0.7); #Lymphocytes 1.8 thou/uL (1.20-3.40); #Monocytes 0.6 thou/uL (0.11-0.59); %Basophils 0.5 % (0.0-1.0); %Eosinophils 3.8 % (0.0-10.0); %Lymphocytes 26.1 % (21.0-51.0); %Monocytes 9.4 % (0.0-10.0); %Neutrophils 60.1 % (42.0-75.0); Hemoglobin 8.1 g/dL (14.0-18.0); Mean Corpuscular HGB CONC 34.1 g/dL (32.0-36.0); Mean Corpuscular Hemoglobin 28.9 pg (27.0-31.0); Mean Corpuscular Volume 84.8 fl (78.0-98.0); Mean Platelet Volume 7.9 fL (7.4-10.4); Platelet Count 240 10x3/uL (130-400); RBC Distribution Width 14.8 % (11.5-14.5); Red Blood Cell (RBC) Count 2.79 mill/uL (4.70-6.10); White Blood Cell (WBC) Count 6.7 10x3/uL (4.8-10.8)
[2022-09-23 03:37] LABS: Anion Gap 15 mmol/L (10-20); Calcium 8.8 mg/dL (7.8-10.44); Carbon Dioxide 20 mmol/L (23-31); Chloride 104 mmol/L (98-107); Glucose 120 mg/dL (83-110); Potassium 3.6 mmol/L (3.5-5.1); Sodium 135 mmol/L (136-145)
[2022-09-23 03:38] LABS: Calc. Creatinine Clearance 56 mL/min (70-130); Estimated GFR 59
[2022-09-23 03:39] LABS: BUN (Urea Nitrogen) 28 mg/dL (8.4-25.7)
[2022-09-23 08:31] VITALS: TEMP 97.8
[2022-09-23] MEDS: Midodrine HCl 5 MG TAB PO SCH ×2 (09:02→15:33)
[2022-09-23] MEDS: Furosemide 40 MG TAB PO SCH (09:02)
[2022-09-23] MEDS: Cyanocobalamin 1000 MCG/ML VIAL IM SCH (09:02)
[2022-09-23] MEDS: Clopidogrel Bisulfate 75 MG TAB PO SCH (09:02)
[2022-09-23] MEDS: Aspirin 81 mg Enteric Coated Tablet PO SCH (09:02)
[2022-09-23 12:19] VITALS: BP 95/57
== END 2022-09-23 16:05 | disposition hospice, inpatient (51) | DRG 291 ==
LOC: ERS 15:57 → ERHOLD 18:02 → 2NO 22:22
PROVIDERS: ADMIT Internal Medicine; ATTEND Internal Medicine
PROC: 3E033XZ Introduction of Vasopressor into Peripheral Vein, Percutaneous Approach (ICD-10-PCS; principal; 2022-09-22)
PROC: 30233N1 Transfusion of Nonautologous Red Blood Cells into Peripheral Vein, Percutaneous Approach (ICD-10-PCS; 2022-09-22)
DX: I11.0 Hypertensive heart disease with heart failure (principal); Z66 Do not resuscitate; Z20.822 Contact with and (suspected) exposure to COVID-19; Z51.5 Encounter for palliative care; I50.43 Acute on chronic combined systolic (congestive) and diastolic (congestive) heart failure; J96.00 Acute respiratory failure, unspecified whether with hypoxia or hypercapnia; K92.1 Melena; E87.20 Acidosis, unspecified; D50.9 Iron deficiency anemia, unspecified; I25.10 Atherosclerotic heart disease of native coronary artery without angina pectoris; K21.9 Gastro-esophageal reflux disease without esophagitis; I95.89 Other hypotension; R79.89 Other specified abnormal findings of blood chemistry; H54.62 Unqualified visual loss, left eye, normal vision right eye; E78.5 Hyperlipidemia, unspecified; I25.5 Ischemic cardiomyopathy; Z86.711 Personal history of pulmonary embolism; Z95.1 Presence of aortocoronary bypass graft; Z86.73 Personal history of transient ischemic attack (TIA), and cerebral infarction without residual deficits; I25.2 Old myocardial infarction; Z95.5 Presence of coronary angioplasty implant and graft; Z90.49 Acquired absence of other specified parts of digestive tract; Z82.49 Family history of ischemic heart disease and other diseases of the circulatory system; Z87.891 Personal history of nicotine dependence; Z79.899 Other long term (current) drug therapy
CPT/HCPCS: 36415; 36416; 36430; 71045; 71275; 74177; 80048; 80053; 82553; 82607; 83605; 83690; 83880; 84145; 84484; 85025; 85027; 85610; 85730; 86850; 86900; 86901; 87040; 87070; 87081; 87205; 93005; 94640; 94760; 96365; 96375; C9113; J0456; J0692; J0696; J1250; J1815; J1940; J2405; J2916; J3370; J3420; J3490; J7050; J7620; P9016; Q0162; Q9967

== ENCOUNTER 2022-09-26 14:42 | Emergency (ER) | payer MEDICARE, MEDICAID ==
[2022-09-26 15:27] LABS: #Lymphocytes 1.1 thou/uL (1.20-3.40); #Monocytes 0.8 thou/uL (0.11-0.59); #Neutrophils 7.2 thou/uL (1.40-6.50); %Eosinophils 0.2 % (0.0-10.0); %Lymphocytes 11.9 % (21.0-51.0); %Neutrophils 78.8 % (42.0-75.0); Hemoglobin 8.8 g/dL (14.0-18.0); Mean Corpuscular HGB CONC 30.9 g/dL (32.0-36.0); Mean Corpuscular Hemoglobin 27.7 pg (27.0-31.0); Mean Corpuscular Volume 89.9 fl (78.0-98.0); Mean Platelet Volume 8.7 fL (7.4-10.4); Platelet Count 258 10x3/uL (130-400); RBC Distribution Width 18.1 % (11.5-14.5); Red Blood Cell (RBC) Count 3.17 mill/uL (4.70-6.10); White Blood Cell (WBC) Count 9.2 10x3/uL (4.8-10.8)
[2022-09-26 15:38] LABS: ALT (SGPT) 170 U/L (8-55); AST (SGOT) 101 U/L (5-34); Albumin 3.3 g/dL (3.4-4.8); Alkaline Phosphatase 63 U/L (40-110); Anion Gap 19 mmol/L (10-20); BUN (Urea Nitrogen) 69 mg/dL (8.4-25.7); Bilirubin, Total 1.5 mg/dL (0.2-1.2); Calc. Creatinine Clearance 0 mL/min (70-130); Calcium 8.8 mg/dL (7.8-10.44); Carbon Dioxide 15 mmol/L (23-31); Chloride 102 mmol/L (98-107); Estimated GFR 43; Globulin 3.4 g/dL (2.4-3.5); Glucose 193 mg/dL (83-110); Potassium 4.4 mmol/L (3.5-5.1); Protein, Total 6.7 g/dL (5.8-8.1); Sodium 132 mmol/L (136-145)
[2022-09-26 16:04] LABS: CKMB 3.8 ng/mL (0-6.6)
[2022-09-26] MEDS ORDERED: Furosemide 40 MG/4 ML VIAL ONE (16:23)
== END 2022-09-26 18:41 | disposition home or self-care (01) ==
LOC: ERS 14:42
DX: I11.0 Hypertensive heart disease with heart failure (principal); I50.9 Heart failure, unspecified; E11.9 Type 2 diabetes mellitus without complications; Z79.82 Long term (current) use of aspirin; Z79.899 Other long term (current) drug therapy
CPT/HCPCS: 36415; 71045; 71250; 80053; 82553; 83880; 84484; 85025; 93005; 94760; 96374; J1940